=== PATIENT | male | born 2000 | race Caucasian/White ===

== ENCOUNTER 2019-07-19 15:50 | Outpatient (CLI) | payer BC, SELFPAY ==
--- NOTE | ~2019-07-19 | MR_ITS ---
EXAMINATION: MR knee LT wo con DATE: 07/19/2019 16:44 INDICATION: Acute onset left knee pain one week post injury TECHNIQUE: Magnetic resonance imaging (MRI) of the left knee was performed without intravenous contra st. Sequences included coronal PD-weighted FSE, coronal PD-weighted FS FSE, sagittal T2-weighted FSE , sagittal PD-weighted FS FSE and axial PD weighted fat saturated FSE. COMPARISON: None. FINDINGS: Medial compartment: Complex tear of the medial meniscus. This includes a vertical tear plane at the junction of the middl e and peripheral thirds of the meniscus beginning at the lateral side of the posterior horn. There ap pears be a second longitudinal horizontal tear plane extending peripherally from the vertical tear pl ane into the periphery of the posterior horn. At the junction of the body and posterior horn of the p ortion of the vertical tear plane extending to the cephalad articular surface terminates in the tear combines to extend anteriorly as an oblique tear extending to the articular surface at the peripheral third of the posterior meniscal body. There is increased signal at the peripheral portion of the pos terior root posterior to the vertical tear plane raising suspicion for a partial avulsion. Articular cartilage is normal. Lateral compartment: Lateral meniscus is normal. Articular cartilage is normal. Patellofemoral compartment: Articular cartilage is normal. Ligaments and tendons: Likely complete tear at the proximal side of the anterior cruciate ligament. The posterior cruciate l igament is normal. There is prominent fluid signal along the deep and superficial margins of the othe rwise normal-appearing medial collateral ligament consistent with low-grade sprain versus extension o f reactive edema related to the adjacent meniscal tear. There is thickening and mild increased signal involving the anterior portion of the proximal fibular collateral ligament with mild surrounding joshua ma consistent with moderate grade sprain. There is mild edema along the myotendinous junction of the popliteus muscle without discrete fluid signal intensity defect or tendon tear which could represent either reactive edema related to joint effusion or low-grade muscle strain. There is thickened disorg anized appearing tissue with increased signal situated between the popliteus tendon and the head of t he fibula suggesting at least partial tear of the expected ligament. There is however no fracture or marrow edema at the proximal tip of the fibula. Anterior and posterior ligaments of the head of the f ibula are normal. The extensor mechanism is normal. The visualized medial and lateral hamstring tendo ns as well as the iliotibial band are normal. Fluid: Large knee joint effusion No loose osteochondral bodies identified. Limits soft tissue edema about th e superolateral aspect of the popliteal fossa. Osseous/other: Prominent marrow edema surrounding a small subarticular curvilinear low signal intensity impaction fr acture at the lateral sulcus of the lateral femoral condyle. Marrow edema at the posterior rim of the lateral tibial plateau without definitive fracture line likely related to associated bone contusion resulting from anterior tibial subluxation injury. Similar pattern of marrow edema consistent with lilly ne contusion along the posterior rim of the medial tibial plateau and along the medial margin of the anterior weightbearing medial femoral condyle. No other fractures or pathologic marrow replacing proc ess. Small bone island at the medial femoral condyle. IMPRESSION: 1. Anterior tibial subluxation injury pattern with complete tear of the anterior cruciate ligament, s ubarticular impaction fracture at the lateral sulcus of the lateral femoral condyle and bone contusio ns at the medial femoral condyle and across the posterior margin of the medial and lateral tibial hali tea
== END 2019-07-19 15:51 | disposition home or self-care (01) ==
DX: S83.512A Sprain of anterior cruciate ligament of left knee, initial encounter (principal); S83.242A Other tear of medial meniscus, current injury, left knee, initial encounter; M25.462 Effusion, left knee; X58.XXXA Exposure to other specified factors, initial encounter
CPT/HCPCS: 73721

== ENCOUNTER 2023-10-28 11:05 | Emergency (ER) | payer BC, SELFPAY ==
--- NOTE | ~2023-10-28 | CT_ITS ---
CT of the Abdomen and Pelvis: Indication: Abdominal pain Technique: 2.5 mm axial scans were obtained through the abdomen and pelvis following intravenous adm inistration of 100 cc of Omnipaque 350. Dose reduction technique was used on this scan by utilizing a utomated exposure control and iterative reconstruction technique. The dose-length product (DLP) was 7 39.97 mGy-cm. Findings: Scans through the lung bases are unremarkable. The liver, spleen, pancreas, gallbladder, adrenals and kidneys are within normal limits. No evidence of aortic aneurysm. No lymphadenopathy. Possible mild wall thickening of the descending and sigmoid colon/rectum. No bowel obstruction. No ab scess or free air. Images through the pelvis were performed. Urinary bladder unremarkable. No pelvic mass seen. No ascit es. Bilateral L4 pars interarticularis defects are noted. Impression: Suspected extensive mild large bowel wall thickening, especially descending colon/sigmoid colon. Huey elate for infectious/inflammatory colitis. Reviewed, dictated and finalized at location . Impression: Suspected extensive mild large bowel wall thickening, especially descending col on/sigmoid colon. Correlate for infectious/inflammatory colitis.
[2023-10-28 11:08] VITALS: BP 137/79; PULSE 93; RESP 20; TEMP 36.6; O2SAT 100
[2023-10-28 11:35] LABS: Basophils Absolute Auto 0.1 K/mm3 (0.0-0.1); Basophils Percent Auto 0.5 % (0.2-1.2); Eosinophils Percent Auto 9.5 % (0-4.4); Hemoglobin 14.2 g/dL (14.0-18.0); Immature Granulocyte Absolute 0.05 K/mm3 (0.00-0.031); Immature Granulocyte Percent A 0.5 % (0-0.5); Lymphocytes Absolute Auto 1.65 K/mm3 (0.9-3.2); Lymphocytes Percent Auto 15.7 % (18.3-44.2); Mean Corpuscular HGB Conc 32.3 g/dl (32-36); Mean Platelet Volume 8.6 fl (7.4-10.4); Monocytes Absolute Auto 0.9 K/mm3 (0.1-0.6); Monocytes Percent Auto 8.6 % (2.6-8.5); Neutrophils Absolute Auto 6.8 K/mm3 (1.3-6.7); Neutrophils Percent Auto 65.2 % (45.5-73.1); Platelet Count Result 359 k/mm3 (150-375); Red Blood Count 4.89 M/mm3 (4.6-6.20); White Blood Count 10.5 K/mm3 (4.5-10.0)
[2023-10-28 11:37] LABS: Appearance Urine Clear (Clear); Bilirubin Urine Negative (Negative); Blood Urine Negative (Negative); Color Urine Yellow (Yellow); Glucose Urine UA Negative (Negative); Ketones Urine Negative (Negative); Leukocyte Esterase Ur Negative LEU/UL (Negative); Nitrate Urine Negative (Negative); Protein Urine Negative (Negative); Specific Grav Ur 1.025 (1.001-1.035); Urobilinogen Urine 0.2 mg/dL (<2.0); pH Urine 5.5 (5.0-9.0)
[2023-10-28 11:40] LABS: Add Urine Microscopic? NO
[2023-10-28 11:45] LABS: Alanine Aminotransferase 21 U/L (6-50); Albumin Level 4.6 g/dL (3.5-5.1); Alkaline Phosphatase 107 U/L (38-126); Anion Gap 6 mmol/L (4-12); Aspartate Amino Transferase 21 U/L (17-59); Bilirubin,Total 0.4 mg/dL (0.2-1.3); Blood Urea Nitrogen 15 mg/dL (9-20); Calcium 9.4 mg/dL (8.4-10.2); Carbon Dioxide 28 mmol/L (22-30); Chloride 106 mmol/L (98-107); Estimated CRCL calculation 108 ml/min; Estimated Glomerular Filt Rate > 60; Glucose 102 mg/dL (65-110); Lipase 1307 U/L (23-300); Potassium 4.1 mmol/L (3.4-5.0); Sodium 140 mmol/L (137-145)
--- NOTE | 2023-10-28 12:08 | ED.GIBLEED ---
HPI - GI Bleed General Chief complaint: GI Bleed Stated complaint: diarrhea w/ bloody stool Time Seen by Provider: 10/28/23 11:58 History of Present Illness HPI Narrative: Patient is a 22-year-old healthy male here with diarrhea and rectal bleeding. He states that the diarrhea has been present for about 1 month. He defecates 5 to 6 times a day, has occasional nocturnal stools. He states that he does have intermittent abdominal cramping that may prodrome episodes of diarrhea. Denies any fever chills. He does state over the last 6 months he has had some significant weight loss but this was around the time that he went through a bad break-up and had some decreased eating at that time due to loss of appetite. He is unsure if the diarrhea has caused any additional weight loss. He denies any recent travel. He notes that about 3 weeks ago he had an episode of bright red blood per rectum. This restarted approximately 4 days ago and he has it intermittently on about half of his bowel movements each day. He describes it as bright red on the paper and around his stool and occasionally in the toilet bowl. He denies any clots. He denies any lightheadedness, chest pain, shortness of breath. He has had a normal appetite and has been able to keep up with his p.o. intake and does not feel dehydrated. He has not had any new rashes or vision changes or joint pain. He has never had a colonoscopy in the past. No family history of IBD, IBS, colon cancer. No fevers, no night sweats. No nausea. Related Data Home Medications Medication Instructions Recorded Confirmed montelukast 10 mg tablet 10 mg PO DAILY 10/25/22 Allergies Allergy/AdvReac Type Severity Reaction Status Date / Time No Known Allergies Allergy Verified 10/28/23 11:11 Review of Systems Review of Systems: All systems reviewed & are unremarkable except as noted in HPI and below PMFSH Past Medical History Medical History (Updated 10/28/23 @ 13:55 by Manuela Melendrez MD) Acute bilateral otitis media Family History Family History (Updated 10/25/22 @ 13:08 by Radha Quispe MA) Father No problems noted. Mother No problems noted. Social History Social History (Updated 10/25/22 @ 13:07 by Radha Quispe MA) Smoking status: Current some day smoker Alcohol intake: current Drinks per week: 1 Alcohol use details: month Substance use: never Substance use type: does not use Lack of Transportation: No Lack of Food: Never True Current Housing: I Have Housing Concerned About Future Housing: No Difficulty Paying Gas/Electric Bills: No Difficulty Paying for Meds: No Currently Unemployed: No Education: High School Diploma/GED Difficulty w/ Childcare or Family Care: No Living arrangements: with family Occupation/Education: occupation Gender identity (if verbalized by the patient): Male Sexual Orientation (if Verbalized by the Patient): Straight or Heterosexual Spiritual care concerns: No Exam Narrative: GENERAL: Well-appearing, well-nourished, and in no acute distress. HEAD: Normocephalic, atraumatic. EYES: PERRLA and EOMI. ENT: Nares clear. Mucous membranes moist. NECK: Supple. CHEST: Clear to auscultation. No respiratory distress. HEART: Regular rate and rhythm. Normal peripheral pulses. ABDOMEN: Soft, suprapubic tenderness, no rebound or guarding, nondistended. EXTREMITIES: Normal range of motion. No edema. SKIN: Warm, dry, no rash. NEURO: No focal deficits. Alert and oriented x3. PSYCH: Normal mood and affect. Course Course Emergency Course: Chart review performed. Patient here with diarrhea x1 month with BRBPR increasing over the next 3 days. Intermittent abdominal pains. Triage vitals normal. Triage lab work reviewed. WBC 10.5, hgb stable at 14.2. CMP unremarkable. UA negative. Patient seen evaluated, nontoxic healthy 22-year-old male. Concern for IBD versus IBS versus some other malabsorption cause
[2023-10-28 12:37] LABS: CRP 1.3 mg/dL (<1.0)
[2023-10-28 13:50] VITALS: BP 120/73; PULSE 74; RESP 16; O2SAT 98
[2023-10-28 14:12] VITALS: BP 112/61; PULSE 74; RESP 16; O2SAT 99
== END 2023-10-28 14:13 | disposition home or self-care (01) ==
PROVIDERS: Emergency Medicine; Emergency Provider Student in an Organized Health Care Education/Training Program; PCP Family Medicine
DX: K52.9 Noninfective gastroenteritis and colitis, unspecified (principal); K62.5 Hemorrhage of anus and rectum; F17.200 Nicotine dependence, unspecified, uncomplicated
CPT/HCPCS: 36415; 74177; 80053; 81003; 83690; 85025; 86140; 99284; Q9967

== ENCOUNTER 2023-10-30 10:41 | Outpatient (CLI) | payer BC, SELFPAY ==
[2023-10-30 11:37] LABS: Lipase 847 U/L (23-300)
[2023-11-03 17:18] LABS: Immunoglobulin A 102 mg/dL (47-310); TTG IGA AB <1.0 U/mL
== END 2023-10-30 10:42 | disposition home or self-care (01) ==
LOC: ANHLAB 10:43
PROVIDERS: PCP Family Medicine; Visit Provider Nurse Practitioner Family
DX: R74.8 Abnormal levels of other serum enzymes (principal)
CPT/HCPCS: 36415; 82784; 83690; 86364; 87493

== ENCOUNTER 2023-10-30 11:56 | Outpatient (CLI) | payer BC, SELFPAY ==
[2023-10-30 13:18] LABS: Toxigenic C. Diff NEGATIVE (NEGATIVE)
== END 2023-10-30 11:57 | disposition home or self-care (01) ==
LOC: ANHLAB 11:57
PROVIDERS: PCP Family Medicine; Visit Provider Nurse Practitioner Family
DX: R74.8 Abnormal levels of other serum enzymes (principal)
CPT/HCPCS: 87493

== ENCOUNTER 2023-11-26 00:51 | Day surgery (SDC) | payer BC, SELFPAY ==
[2023-11-17 15:40] VITALS: BMI 28.1
[2023-11-26 13:48] VITALS: BP 109/71; PULSE 116; RESP 18; TEMP 36.5; O2SAT 99
[2023-11-26] MEDS: LACTATED RINGERS 1,000 ML 150 ML IV CONT (13:57)
--- NOTE | 2023-11-26 14:12 | P.PNAN_ITS ---
Anes - Initial Pre Proc Eval Procedure: Operation Date: 11/26/23 15:00 Proposed Procedures p Colonoscopy - Mehdi Wellington MD Date/Time: 11/26/23 14:12 Surgeon: Mehdi Wellington MD Pre Op Diagnosis: Abnormal finding on Imaging, Wt. Loss, Diarrhea Patient Data Age: 23 Gender: M Height: 1.8 m Weight: 81.9 kg Last Vital Signs Temp 36.5 C 11/26/23 13:48 Pulse 116 H 11/26/23 13:48 Resp 18 11/26/23 13:48 BP 109/71 11/26/23 13:48 Pulse Ox 99 11/26/23 13:48 O2 Del Method Room Air 11/26/23 13:48 Allergies Allergy/AdvReac Type Severity Reaction Status Date / Time No Known Allergies Allergy Verified 11/26/23 13:47 Home Medications Medication Instructions Recorded Confirmed Type No Home Medications 11/17/23 11/26/23 History Patient hx anesthesia problems: none Family hx anesthesia problems: none Results Review: All pre-operative results and documents have been reviewed as part of the pre- operative evaluation. [facility] Past Medical History Medical History Acute bilateral otitis media Family History Family History Father No problems noted. Mother No problems noted. Social History Social History Smoking status: Light tobacco smoker Tobacco type: cigars Additional smoking assessment comments: ONCE A MONTH Alcohol intake: current Drinks per week: 2 Alcohol use details: DRINKS Substance use: never Substance use type: does not use Lack of Transportation: No Lack of Food: Never True Current Housing: I Have Housing Concerned About Future Housing: No Difficulty Paying Gas/Electric Bills: No Difficulty Paying for Meds: No Currently Unemployed: No Education: High School Diploma/GED Difficulty w/ Childcare or Family Care: No Living arrangements: with family Occupation/Education: occupation Gender identity (if verbalized by the patient): Male Sexual Orientation (if Verbalized by the Patient): Straight or Heterosexual Spiritual care concerns: No Anes - Eval Final PreProcedure Day of Procedure 11/26/23 14:12 Patient weight: normal Heart: regular rate and rhythm Lungs: clear to auscultation Airway: Mallampati scale class II Neurological: alert and oriented Last oral intake: >/= 8 hours ASA classification: II Emergent: no Anesthetic plan: proceed Anesthesia type and monitoring: general GIVS and standard monitoring Results Review: All pre-operative results and documents have been reviewed as part of the pre- operative evaluation. Informed Consent: The patient's anesthetic plan and its attendant risks and benefits were discuss ed with the patient/family/POA. Questions were solicited and answers provided to the satisfaction of the patient/family/POA.
--- NOTE | 2023-11-26 14:44 | WPDHPUPDATE1 ---
History and Physical Update Update Date/Time: 11/26/23 14:44 History and Physical has been reviewed, including an updated exam of the patient. There are NO changes in the patient's condition. Risks, benefits, and alternatives have been discussed and questions answered. Patient agrees to proceed with procedure.
[2023-11-26 14:59] VITALS: BP 111/71; PULSE 91; RESP 24; O2SAT 98
[2023-11-26 15:09] VITALS: BP 109/66; PULSE 89; RESP 20; O2SAT 98
[2023-11-26 15:19] VITALS: BP 109/70; PULSE 88; RESP 18; O2SAT 98
== END 2023-11-26 15:30 | disposition home or self-care (01) ==
PROVIDERS: PCP Family Medicine; Visit Provider Internal Medicine Gastroenterology
PROC: 0DJD8ZZ Inspection of Lower Intestinal Tract, Via Natural or Artificial Opening Endoscopic (ICD-10-PCS; CPT 45378; principal; 2023-11-26 15:00)
DX: K52.9 Noninfective gastroenteritis and colitis, unspecified (principal); K62.5 Hemorrhage of anus and rectum; R93.89 Abnormal findings on diagnostic imaging of other specified body structures; Z72.0 Tobacco use
CPT/HCPCS: 45380; 88305; J2704; J7120

== ENCOUNTER 2023-12-10 15:02 | Emergency (ER) | payer OTHER, BC, SELFPAY ==
[2023-12-10 15:04] VITALS: BP 140/88; PULSE 79; RESP 16; TEMP 36.3; O2SAT 100
[2023-12-10] MEDS: TETANUS,DIPHTHERIA,AC PERTUSSIS ADULT (0.5 ML) BOOSTRIX IM (15:58)
[2023-12-10] MEDS: KETOROLAC 30 MG/ML VIAL (*BKC) IM (16:00)
[2023-12-10] MEDS: LIDOCAINE HCL 2% LOCAL INJ 20 ML VIAL 10 ML INFILTRATE (16:00)
--- NOTE | 2023-12-10 17:09 | ED.GENADULT ---
HPI - General Adult General Chief complaint: Wound/Laceration Stated complaint: lac Time Seen by Provider: 12/10/23 15:09 History of Present Illness HPI narrative: Ravinder Pham is a 23 y/o male who presents with reports of being at work and picked up a piece of equipment that hit him on his left upper lip. + upper left side laceration about 2CM Denies falling / no LOC Related Data Allergies Allergy/AdvReac Type Severity Reaction Status Date / Time No Known Allergies Allergy Verified 12/10/23 15:08 Review of Systems Review of Systems: All systems reviewed & are unremarkable except as noted in HPI and below PMFSH Past Medical History Medical History Acute bilateral otitis media Blood in stool Ulcerative colitis Family History Family History Father No problems noted. Mother No problems noted. Social History Social History Smoking status: Light tobacco smoker Tobacco type: cigars Additional smoking assessment comments: ONCE A MONTH Alcohol intake: current Drinks per week: 2 Alcohol use details: DRINKS Substance use: never Substance use type: does not use Lack of Transportation: No Lack of Food: Never True Current Housing: I Have Housing Concerned About Future Housing: No Difficulty Paying Gas/Electric Bills: No Difficulty Paying for Meds: No Currently Unemployed: No Education: High School Diploma/GED Difficulty w/ Childcare or Family Care: No Living arrangements: with family Occupation/Education: occupation Gender identity (if verbalized by the patient): Male Sexual Orientation (if Verbalized by the Patient): Straight or Heterosexual Spiritual care concerns: No Exam Narrative: GENERAL: Well-appearing, well-nourished, and in no acute distress. HEAD: Normocephalic, atraumatic. EYES: PERRLA and EOMI. ENT: Nares clear, no rhinorrhea or epistaxis. Mucous membranes moist. Oropharynx without tonsillar hypertrophy exudate or other lesions. 2 cm laceration to the the upper left side lip does not cross the vermilion border NECK: Supple. No adenopathy or masses. No carotid bruits or JVD CHEST: Clear to auscultation. No respiratory distress. No wheezes rales or rhonchi HEART: Regular rate and rhythm. No murmur heard. Normal peripheral pulses. ABDOMEN: Soft, nontender, nondistended, normal active bowel sounds. EXTREMITIES: Normal range of motion. No edema. SKIN: Warm, dry, no rash. NEURO: No focal deficits. Alert and oriented x3. PSYCH: Normal mood and affect. Course Vital Signs Vital signs: Vital Signs Temperature 36.3 C L 12/10/23 15:04 Pulse Rate 79 12/10/23 15:04 Respiratory Rate 16 12/10/23 15:04 Blood Pressure 140/88 12/10/23 15:04 Pulse Oximetry 100 12/10/23 15:04 Oxygen Delivery Room Air 12/10/23 15:04 Temperature 36.3 C L 12/10/23 15:04 Pulse Rate 79 12/10/23 15:04 Respiratory Rate 16 12/10/23 15:04 Blood Pressure 140/88 12/10/23 15:04 Pulse Oximetry 100 12/10/23 15:04 Oxygen Delivery Room Air 12/10/23 15:04 Procedures Laceration Laceration 1: Date: 12/10/23 Time: 17:20 Site: face Side (If applicable): left Size (cm): 2 Description: linear Depth: simple, single layer Local Anesthetic: lidocaine 2% Amount of anesthesia used (mL): 5 Pre-repair: wound explored, irrigated and irrigated extensively ====== Skin Level ====== Skin layer closed with: nylon Size (cm): 5-0 Number of sutures: 5 Technique: simple, interrupted ====== Subcutaneous Layer ====== ====== Muscle Layer ====== ====== Tendon Layer ====== Medical Decision Making MDM Narrative Medical decision making narrative: 2cm laceration to the upper left side of
== END 2023-12-10 17:14 | disposition home or self-care (01) ==
PROVIDERS: Emergency Provider Nurse Practitioner Family; PCP Family Medicine
DX: S01.511A Laceration without foreign body of lip, initial encounter (principal); F17.290 Nicotine dependence, other tobacco product, uncomplicated; Z23 Encounter for immunization; W22.8XXA Striking against or struck by other objects, initial encounter; Y99.0 Civilian activity done for income or pay
CPT/HCPCS: 12011; 90471; 90715; 96372; 99283; J1885

== ENCOUNTER 2024-03-24 16:46 | Outpatient (CLI) | payer OTHER, SELFPAY ==
[2024-03-24 16:08] LABS: Hematocrit 33.4 % (42.0-52.0); Hemoglobin 10.6 g/dL (14.0-18.0); Mean Corpuscular HGB Conc 31.7 g/dl (32-36); Mean Corpuscular Hemoglobin 26.3 pg (26-34); Mean Corpuscular Volume 82.9 fl (80-100); Mean Platelet Volume 8.2 fl (7.4-10.4); Platelet Count Result 524 k/mm3 (150-375); Red Blood Count 4.03 M/mm3 (4.6-6.20); Red Cell Distribution Width 14.2 % (11.5-14.5); White Blood Count 12.9 K/mm3 (4.5-10.0)
[2024-03-24 16:37] LABS: Alanine Aminotransferase 49 U/L (6-50); Albumin Level 4.1 g/dL (3.5-5.1); Alkaline Phosphatase 106 U/L (38-126); Anion Gap 8 mmol/L (4-12); Aspartate Amino Transferase 42 U/L (17-59); Bilirubin,Total 0.4 mg/dL (0.2-1.3); Blood Urea Nitrogen 14 mg/dL (9-20); Calcium 9.3 mg/dL (8.4-10.2); Carbon Dioxide 28 mmol/L (22-30); Chloride 102 mmol/L (98-107); Estimated Glomerular Filt Rate > 60; Glucose 91 mg/dL (65-110); Potassium 3.8 mmol/L (3.4-5.0); Sodium 138 mmol/L (137-145)
[2024-03-24 16:45] LABS: Erythrocyte Sedimentation Rate 49 mm/hr (0-20)
[2024-03-24 17:08] LABS: Hepatitis B Surface Antigen Negative (Negative)
[2024-03-24 17:27] LABS: Hepatitis B Surface Anti Res Positive
[2024-03-24 17:54] LABS: Toxigenic C. Diff NEGATIVE (NEGATIVE)
[2024-03-26 02:03] LABS: Hepatitis B Core Ab Total NON-REACTIVE (NON-REACTIVE)
[2024-03-27 12:49] LABS: NIL 0.05 IU/mL; Quantiferon TB Plus, 1T NEGATIVE (NEGATIVE); TB1-NIL 0.01 IU/mL
== END 2024-03-24 16:47 | disposition home or self-care (01) ==
PROVIDERS: PCP Family Medicine; Visit Provider Nurse Practitioner Family
DX: K51.90 Ulcerative colitis, unspecified, without complications (principal); R19.7 Diarrhea, unspecified
CPT/HCPCS: 36415; 80053; 83993; 85027; 85652; 86140; 86480; 86704; 86706; 87045; 87177; 87209; 87340; 87427; 87449; 87493

== ENCOUNTER 2024-08-18 14:01 | Outpatient (CLI) | payer OTHER, SELFPAY ==
[2024-08-18 14:34] LABS: Hematocrit 42.4 % (42.0-52.0); Hemoglobin 12.9 g/dL (14.0-18.0); Mean Corpuscular HGB Conc 30.4 g/dl (32-36); Mean Corpuscular Hemoglobin 25.1 pg (26-34); Mean Corpuscular Volume 82.5 fl (80-100); Mean Platelet Volume 8.6 fl (7.4-10.4); Platelet Count Result 428 k/mm3 (150-375); Red Blood Count 5.14 M/mm3 (4.6-6.20); Red Cell Distribution Width 15.6 % (11.5-14.5); White Blood Count 6.9 K/mm3 (4.5-10.0)
--- OUTSIDE RECORDS SUMMARY | 2024-08-18 15:38 | XMS_ITS | Clinical Summary ---
Author Organization [facility] Address [address] [place] [address] Care Team Providers Care Health Service Worker Name Role Phone Ciera Galvez MD Primary Care Provider [phone] Source Comments [facility],non-owned Affiliates and Associated Physician Practices is amultiple site organization consisting of ambulatory clinics and hospital sitesin [place], [place], [place] and [place]. This disclosure is being madepursuant to the Care Everywhere program and may not contain all information available regarding this patient. Last updated 18.[facility] Allergies No known active allergies Medications Be aware that medications may not be up to date on this document. Always verify current medications with the patient. No known medications Active Problems Problem Noted Date Diagnosed Date Acute pain of right shoulder 09/15/2015 [place]-Schlatter's disease 07/16/2013 Moderate persistent asthma 09/21/2010 Allergic rhinitis 09/17/2010 Allergic conjunctivitis 09/17/2010 Pain in joint of right shoulder Resolved Problems Problem Noted Date Diagnosed Date Resolved Date Asthma, intermittent 09/17/2010 011 Immunizations Name Administration Dates Next Due DTaP VACCINE IM (6wk-6yrs) 01/21/2005,,06/30/2000,03/17,01/15/2000 HEP A PEDS 2 DOSE 08/31/2010,01/25/2008 HEP B VACCINE, PED/ADOL 09/12/2001,12/20/2000, HIB BOOSTER 03/28/2001, 1,03/17/2000,01/14 INFLUENZA VACCINE, QUADR. (F LUZONE; FLULAVAL; FLUARIX; AFLURIA QUADRIVALENT; 6MO+), 0.5 ML (IIV4) 03/16/2019 MENINGOCOCCAL CONJUGATE (MCV4P) 11/04/2013 MMR 01/21/2005,03/28/2001 PNEUMOCOCCAL CONJ, PEDS 12/20/2000,06/30/2000, POLIO IPV 01/21/2005, 1,03/17/2000,01/14 TDAP (7yrs+) 08/31/2010 VARICELLA 01/25/2008,09/12/2001 Social History Tobacco Use Types Packs/Day Years Used Date Smoking Tobacco: Never Smokeless Tobacco: Never Alcohol Use Standard Drinks/Week Comments No 0 (1 standard drink = 0.6 oz pur e alcohol) Sex and Gender Information Value Date Recorded Sex Assigned at Not on file Gender Identity Not on file Sexual Orientation Not on file Last Filed Vital Signs Vital Sign Reading Time Taken Comments Blood Pressure 120/60 01/04/2017 11:18 AM CDT Pulse 92 01/04/2017 11:18 AM CDT Temperature 36.2 C (97.2 F) 04/06/2019 3:52 PM WATER TESTER Respiratory Rate 16 01/04/2017 11:18 AM CDT Oxygen Saturation 99% 01/04/2017 11:18 AM CDT Inhaled Oxygen Concentration - - Weight 89.8 kg (198 lb) 04/06/2019 3:52 PM WATER TESTER Height 177.8 cm (5' 10 ) 01/04/2017 11:18 AM CDT Body Mass Index - - Plan of Treatment Health Maintenance Due Date Last Done Comments PNEUMOCOCCAL VACCINE (1 of 1 - PPSV23) 11/15/2005 12/20/2000, 06/30/2000, 01/15/2000 HIV SCREENING 11/15/2014 HPV VACCINE (1 - Male 3-dose series) 11/15/2014 HEPATITIS C SCREENING 11/11/2017 DTAP/TDAP/TD VACCINES (7 - Td or Tdap) 08/31/2020 08/31/2010, 01/21/2005, 09/12/2001, Additional history exists COVID-19 VACCINE (1 - 2023- season) 2024 INFLUENZA VACCINE (#1) 2024 03/16/2019 DEPRESSION SCREENING 06/02/2024 ZOSTER VACCINE (1 of 2) 11/15/2049 HIB VACCINE Completed 03/28/2001, 06/03, 03/17/2000, Additional history exists HEPATITIS B VACCINE Completed 09/12/2001, 12/20/2000, 06/30/2000 MENINGOCOCCAL GROUPS A/C/Y/W VACCINE Aged Out 11/04/2013 No longer eligible based on patient's age to complete this topic MENINGOCOCCAL (Group B) VACCINE SHARED DECISION-MAKING Aged Out No longer eligible based on patient's age to complete this topic Goals Goal Patient Goal Type Associated Problems Recent Progress Patient-Stated? Author Use safety retraint in car Lifestyle On track( 019 1:59 PM CDT) Francie Ellis, YESIKA Care Teams Health Service Worker Relationship Specialty Start Date End Date Ciera Galvez MD PCP - General Pediatrics 08/07/16
--- OUTSIDE RECORDS SUMMARY | 2024-08-18 15:38 | XMS_ITS | Referral Summary ---
Author Organization [facility] (formerly [facility] Address [address] [place] [address] Care Team Providers Care Floor Nurse Name Role Phone Nir Schmid MD Primary Care Provider [phone] Allergies No known active allergies Medications fluticasone propionate 93 mcg/actuation aerosol breath activated Administer 1 spray into affected nostril(s) 2 (two) times a day 16 mL 6 1 Active Additional Information Patient taking differently:1 spray nasal 2 times daily,Indications: Nasal Polyp, Informant: Self, Reported on 05/15/2022 loratadine (CLARITIN) 10 mg tabletIndicatio ns:Allergic Rhinitis Take 1 tablet (10 mg total) by mouth home health aid before breakfast Active HYDROcodone-tammy taminophen (NORCO) 5-325 mg per tabletIndicatio ns:Pain TAKE 1 TABLET EVERY 4-6 HOURS NEEDED FOR PAIN 20 tablet 2 Active montelukast (SINGULAIR) 10 mg tablet 2 Active Active Problems Problem Noted Date Diagnosed Date Loose body in knee, left knee 05/14/2022 Overview (05/14/2022): Added automatically from request for surgery [id number] Left knee pain 05/14/2022 Overview (05/14/2022): Added automatically from request for surgery [id number] Hypertrophy, nasal, turbinate 02/16/2020 Overview (02/16/2020): Added automatically from request for surgery [id number] Chronic pansinusitis 02/16/2020 Overview (02/16/2020): Added automatically from request for surgery [id number] Nose polyp 02/16/2020 Overview (02/16/2020): Added automatically from request for surgery [id number] Hypertrophy of nasal turbinates 08/18/2019 Deviated nasal septum 08/18/2019 Chronic sinusitis 08/18/2019 Left anterior cruciate ligament tear 08/13/2019 Overview (08/13/2019): Added automatically from request for surgery [id number] Complex tear of medial menis cus of left knee as current injury 08/13/2019 Overview (08/13/2019): Added automatically from request for surgery [id number] Pain in joint of right shoulder 09/15/2015 [place]-Schlatter's disease 07/16/2013 Moderate persistent asthma 09/21/2010 Allergic conjunctivitis 09/17/2010 Allergic rhinitis 09/17/2010 Immunizations Immunization Administration Dates Next Due DTaP 01/21/2005, 2,06/30/2000,03/17,01/15/2000 Hep A, Pediatric 08/31/2010,01/25/2008 Hep B, Adolescent or Pediatric 09/12/2001,2000,06/30/2000 Hib (PRP-D) 03/28/2001, 1,03/17/2000,01/14 IPV 01/21/2005, 1,03/17/2000,01/14 Influenza, Quadrivalent, Spl it, Preservative Free, Intramuscular 03/16/2019 MMR 01/21/2005,03/28/2001 Meningococcal MCV4P (Menactra) 11/04/2013 Tdap 08/31/2010 Varicella 01/25/2008,09/12/2001 Social History Tobacco Use Types Packs/Day Years Used Date Smoking Tobacco: Some Days Cigars Passive Smoke Exposure: Yes Smokeless Tobacco: Never Tobacco Cessation:Ready to Q uit: Not Asked; Counseling Given: Not Answered Comments:Occasional cigar Alcohol Use Standard Drinks/Week Comments Never 0 (1 standard drink = 0.6 oz pur e alcohol) AUDIT-C Answer Date Recorded Q1: How often do you have a drink containing alc ohol? 2-4 times a month 05/30/2022 Q2: How many drinks containi ng alcohol do you have on a typical day when you are drinking? 1 or 2 05/30/2022 Q3: How often do you have si x or more drinks on one occasion? Never 05/30/2022 PHQ-2 Answer Date Recorded PHQ-2 Score 0 04/20/2019 Sex and Gender Information Value Date Recorded Sex Assigned at Not on file Legal Sex Male 7:08 PM WASH BOX OPERATOR Gender Identity Not on file Sexual Orientation Not on file Last Filed Vital Signs Vital Sign Reading Time Taken Comments Blood Pressure 146/83 05/30/2022 1:45 PM WASH BOX OPERATOR Pulse 86 05/30/2022 1:45 PM WASH BOX OPERATOR Temperature 36 C (96.8 F) 05/30/2022 12:34 PM WASH BOX OPERATOR Respiratory Rate 17 05/30/2022 1:45 PM WASH BOX OPERATOR Oxygen Saturation 97% 05/30/2022 1:45 PM WASH BOX OPERATOR Inhaled Oxygen Concentration - - Weight 97.5 kg (215 lb) 07/16/2023 7:36 AM WASH BOX OPERATOR Height 180.3 cm (5' 11 ) 07/16/2023 7:36 AM WASH BOX OPERATOR Body Mass Index 29.99 07/16/2023 7:36 AM WASH BOX OPERATOR Plan of Treatment Not on file Medical Devices Implanted Type Area Underwriting Manager Device Identifier Shelf Expiration Date Model / Serial / Lot Quispe & Nephew Endoscopy [id number] Fast-Fix 2 [place] Pretie Suture 360d Curve Device Fixation - S00 - [id number] Implanted:Qty: 1 on 10/19/2019 by Adal Browning MD at [facility] Left: Knee Quispe [employer] Nephew Endoscopy 05/20/2022 [id number] / [id number] Quispe [employer] Nephew Endoscopy [id number] Fast-Fix 2 [place] Pretie Suture 360d Curve Device Fixation - S00 - [id number] Implanted:Qty: 1 on 10/19/2019 by Adal Browning MD at [facility] Left: Knee Quispe [employer] Nephew Endoscopy 06/09/2022 [id number] / [id number] Quispe [employer] Nephew Endoscopy [id number] Fast-Fix 2 [place] Pretie Suture 360d Curve Device Fixation - S00 - [id number] Implanted:Qty: 1 on 10/19/2019 by Adal Browning MD at [facility] Left: Knee Quispe [employer] Nephew Endoscopy 06/09/2022 [id number] / [id number] Ar[employer]rex Inc Ar-1380e 8mm 20mm Cannulated Sheath Acl Pcl Screw Interference Titanium - [id number] Implanted:Qty: 1 on 10/19/2019 by Adal Browning MD at [facility] Left: Knee Ar[employer] Inc 07/02/2024 AR-1380E / / [id number] Arthrex Inc Ar-1390e 9mm 20mm Cannulated Sheath Acl Pcl Screw Interference Titanium - [id number] Implanted:Qty: 1 on 10/19/2019 by Adal Browning MD at [facility] Left: Knee [employer] 05/01/2024 AR-1390E / / [id number] Insurance [facility] ACCESS [employer] OOS youcalc ACCESS OOS youcalc ACCESS OOS Care Teams Floor Nurse Relationship Specialty Start Date End Date Nir Schmid MD [address] [place] [address] PCP - General Family Medicine 04/15/22
--- OUTSIDE RECORDS SUMMARY | 2024-08-18 15:38 | XMS_ITS | Clinical Summary ---
Author Organization [facility] Address [address] [place] [address] Care Team Providers Care Product Tester Fiberglass Name Role Phone Nir Schmid MD Primary Care Provider Allergies No known active allergies Medications fluticasone propionate 93 mcg/actuation aerosol breath activated Administer 1 spray into affected nostril(s) 2 (two) times a day 16 mL 6 1 Active Additional Information Patient taking differently:1 spray nasal 2 times daily,Indications: Nasal Polyp, Informant: Self, Reported on 05/15/2022 loratadine (CLARITIN) 10 mg tabletIndicatio ns:Allergic Rhinitis Take 1 tablet (10 mg total) by mouth truck spotter before breakfast Active HYDROcodone-tammy taminophen (NORCO) 5-325 mg per tabletIndicatio ns:Pain TAKE 1 TABLET EVERY 4-6 HOURS NEEDED FOR PAIN 20 tablet 2 Active montelukast (SINGULAIR) 10 mg tablet 2 Active Active Problems Problem Noted Date Diagnosed Date Loose body in knee, left knee 05/14/2022 Overview (05/14/2022): Added automatically from request for surgery [id number] Left knee pain 05/14/2022 Overview (05/14/2022): Added automatically from request for surgery [id number] Hypertrophy, nasal, turbinate 02/16/2020 Overview (02/16/2020): Added automatically from request for surgery [id number] Chronic pansinusitis 02/16/2020 Overview (02/16/2020): Added automatically from request for surgery [id number] Nose polyp 02/16/2020 Overview (02/16/2020): Added automatically from request for surgery [id number] Hypertrophy of nasal turbinates 08/18/2019 Deviated nasal septum 08/18/2019 Chronic sinusitis 08/18/2019 Left anterior cruciate ligament tear 08/13/2019 Overview (08/13/2019): Added automatically from request for surgery [id number] Complex tear of medial menis cus of left knee as current injury 08/13/2019 Overview (08/13/2019): Added automatically from request for surgery [id number] Pain in joint of right shoulder 09/15/2015 [place]-Schlatter's disease 07/16/2013 Moderate persistent asthma 09/21/2010 Allergic conjunctivitis 09/17/2010 Allergic rhinitis 09/17/2010 Immunizations Immunization Administration Dates Next Due DTaP 01/21/2005, 2,06/30/2000,03/17,01/15/2000 Hep A, Pediatric 08/31/2010,01/25/2008 Hep B, Adolescent or Pediatric 09/12/2001,2000,06/30/2000 Hib (PRP-D) 03/28/2001, 1,03/17/2000,01/14 IPV 01/21/2005, 1,03/17/2000,01/14 Influenza, Quadrivalent, Spl it, Preservative Free, Intramuscular 03/16/2019 MMR 01/21/2005,03/28/2001 Meningococcal MCV4P (Menactra) 11/04/2013 Tdap 08/31/2010 Varicella 01/25/2008,09/12/2001 Surgical History Surgery Date Site/Laterality Comments HAND SURGERY 12/01/2015 - 12/31/2015 pinky finger SEPTOPLASTY 06/02/2019 - 06/01/2020 ANTERIOR CRUCIATE LIGAMENT REPAIR 06/02/2019 - 06/01/2020 Left ANTERIOR CRUCIATE LIGAMENT WITH PATELLAR TENDON; ARTHROSCOPIC MEDIAL MENISCAL REPAIR Medical History Medical History Date Comments No pertinent past medical history Asthma childhood Allergic rhinitis Concussion X3, last 2017, n o residual Family History Medical History Relation Name Comments No Known Problems Brother Arthritis Father Kevin Hypertension Father Kevin Alzheimer's disease Maternal Grandfather Raffi No Known Problems Maternal Grandmother No Known Problems Mother No Known Problems Paternal Grandfather No Known Problems Paternal Grandmother No Known Problems Sister Anesthesia problems Neg Hx Relation Name Status Comments Brother Alive Father Kevin Alive Maternal Grandfather Raffi Maternal Grandmother Alive Mother Alive Paternal Grandfather Alive Paternal Grandmother Alive Sister Alive Social History Tobacco Use Types Packs/Day Years [...] on file Legal Sex Male 7:08 PM PARTS ORDER AND STOCK CLERK Gender Identity Not on file Sexual Orientation Not on file Obstetrics History Last Filed Vital Signs Vital Sign Reading Time Taken Comments Blood Pressure 146/83 05/30/2022 1:45 PM PARTS ORDER AND STOCK CLERK Pulse 86 05/30/2022 1:45 PM PARTS ORDER AND STOCK CLERK Temperature 36 C (96.8 F) 05/30/2022 12:34 PM PARTS ORDER AND STOCK CLERK Respiratory Rate 17 05/30/2022 1:45 PM PARTS ORDER AND STOCK CLERK Oxygen Saturation 97% 05/30/2022 1:45 PM PARTS ORDER AND STOCK CLERK Inhaled Oxygen Concentration - - Weight 97.5 kg (215 lb) 07/16/2023 7:36 AM PARTS ORDER AND STOCK CLERK Height 180.3 cm (5' 11 ) 07/16/2023 7:36 AM PARTS ORDER AND STOCK CLERK Body Mass Index 29.99 07/16/2023 7:36 AM PARTS ORDER AND STOCK CLERK Plan of Treatment Health Maintenance Due Date Last Done Comments Hepatitis C Screening 1999 HPV Vaccines (1 - Male 3-dos e series) 11/15/2014 Regular Well Visit/Exam 18-64 11/15/2017 Pneumococcal vaccine <65 (1 of 2 - PCV) 11/15/2018 Depression Screening 04/20/2020 04/20/2019 DTaP/Tdap/Td Vaccine (7 - Td or Tdap) 08/31/2020 08/31/2010, 01/21/2005, 09/12/2001, Additional history exists Influenza Vaccine (#1) 2024 03/16/2019 Hepatitis B Screening Completed 09/12/2001 , 12/20/2000, 06/30/2000 Varicella Vaccines Completed 01/25/2008, 09/12/2001 Medical Devices Implanted Type Area Drying Machine Back Tender Device Identifier Shelf Expiration Date Model / Serial / Lot Quispe & Nephew Endoscopy [id number] Fast-Fix 2 [place] Pretie Suture 360d Curve Device Fixation - S00 - [id number] Implanted:Qty: 1 on 10/19/2019 by Adal Browning MD at [facility] [place] Left: Knee Quis[employer] Nephew Endoscopy 05/20/2022 [id number] / [id number] Quispe [employer] Nephew Endoscopy [id number] Fast-Fix 2 [place] Pretie Suture 360d Curve Device Fixation - S00 - [id number] Implanted:Qty: 1 on 10/19/2019 by Adal Browning MD at [facility] Left: Knee Quispe [employer] Nephew Endoscopy 06/09/2022 [id number] / [id number] Quispe [employer] Nephew Endoscopy [id number] Fast-Fix 2 [place] Pretie Suture 360d Curve Device Fixation - S00 - [id number] Implanted:Qty: 1 on 10/19/2019 by Adal Browning MD at [facility] Left: Knee Quispe [employer] Nephew Endoscopy 06/09/2022 [id number] / [id number] Ar[employer]rex Inc Ar-1380e 8mm 20mm Cannulated Sheath Acl Pcl Screw Interference Titanium - [id number] Implanted:Qty: 1 on 10/19/2019 by Adal Browning MD at [facility] [place] Left: Knee [employer] Inc 07/02/2024 AR-1380E / / [id number] Ar[employer]rex Inc Ar-1390e 9mm 20mm Cannulated Sheath Acl Pcl Screw Interference Titanium - [id number] Implanted:Qty: 1 on 10/19/2019 by Adal Browning MD at [facility] Left: Knee [employer] 05/01/2024 AR-1390E / / [id number] Insurance [employer] OOS [employer] OOS [employer] ACCESS OOS Care Teams Product Tester Fiberglass Relationship Specialty Start Date End Date Nir Schmid MD [address] [place] [address] [place] [address] PCP - General Family Medicine 04/15/22
[2024-08-18 15:54] LABS: Alanine Aminotransferase 22 U/L (6-50); Albumin Level 4.6 g/dL (3.5-5.1); Alkaline Phosphatase 111 U/L (38-126); Anion Gap 10 mmol/L (4-12); Aspartate Amino Transferase 27 U/L (17-59); Bilirubin,Total 0.3 mg/dL (0.2-1.3); Blood Urea Nitrogen 19 mg/dL (9-20); CRP 1.7 mg/dL (<1.0); Calcium 9.2 mg/dL (8.4-10.2); Carbon Dioxide 27 mmol/L (22-30); Chloride 102 mmol/L (98-107); Estimated Glomerular Filt Rate > 60; Glucose 108 mg/dL (65-110); Potassium 3.7 mmol/L (3.4-5.0); Sodium 139 mmol/L (137-145)
== END 2024-08-18 14:02 | disposition home or self-care (01) ==
LOC: ANHLAB 14:02
PROVIDERS: Visit Provider Nurse Practitioner Family
DX: K51.80 Other ulcerative colitis without complications (principal); R19.5 Other fecal abnormalities; R19.7 Diarrhea, unspecified; R10.9 Unspecified abdominal pain
CPT/HCPCS: 36415; 80053; 85027; 86140

== ENCOUNTER 2024-08-19 10:57 | Outpatient (CLI) | payer OTHER, SELFPAY ==
--- OUTSIDE RECORDS SUMMARY | 2024-08-19 11:52 | XMS_ITS | Clinical Summary ---
Author Organization [facility] Address [address] [facility] [place] [address] Care Team Providers Care Ambulance Driver Name Role Phone Ciera Galvez MD Primary Care Provider [phone] Source Comments [facility],non-owned Affiliates and Associated Physician Practices is amultiple site organization consisting of ambulatory clinics and hospital sitesin [place], [place], [place] and [place]. This disclosure is being madepursuant to the Care Everywhere program and may not contain all information available regarding this patient. Last updated 18.[facility] Allergies No known active allergies Medications Be aware that medications may not be up to date on this document. Always verify current medications with the patient. No known medications Active Problems Problem Noted Date Diagnosed Date Acute pain of right shoulder 09/15/2015 [place]-Schlatter's disease 07/16/2013 Moderate persistent asthma 09/21/2010 Allergic [...] 36.2 C (97.2 F) 04/06/2019 3:52 PM FOLDER INSPECTOR Respiratory Rate 16 01/04/2017 11:18 AM CDT Oxygen Saturation 99% 01/04/2017 11:18 AM CDT Inhaled Oxygen Concentration - - Weight 89.8 kg (198 lb) 04/06/2019 3:52 PM FOLDER INSPECTOR Height 177.8 cm (5' 10 ) 01/04/2017 [...] PM CDT) Francie Ellis, YESIKA Care Teams Ambulance Driver Relationship Specialty Start Date End Date Ciera Galvez MD PCP - General Pediatrics 08/07/16
--- OUTSIDE RECORDS SUMMARY | 2024-08-19 11:52 | XMS_ITS | Clinical Summary ---
Author Organization [facility] Address [address] [place] [address] Care Team Providers Care Surgical Scrub Technician Name Role Phone Nir Schmid MD Primary Care Provider [phone] Allergies No known active allergies Medications fluticasone propionate 93 mcg/actuation aerosol breath activated Administer 1 spray into affected nostril(s) 2 (two) times a day 16 mL 6 1 Active Additional Information Patient taking differently:1 spray nasal 2 times daily,Indications: Nasal Polyp, Informant: Self, Reported on 05/15/2022 loratadine (CLARITIN) 10 mg tabletIndicatio ns:Allergic Rhinitis Take 1 tablet (10 mg total) by mouth osd clerk before breakfast Active HYDROcodone-tammy taminophen (NORCO) 5-325 mg per tabletIndicatio ns:Pain TAKE 1 TABLET EVERY 4-6 HOURS NEEDED FOR PAIN 20 tablet 2 Active montelukast (SINGULAIR) 10 mg tablet 2 Active Active Problems Problem Noted Date Diagnosed Date Loose body in knee, left knee 05/14/2022 Overview (05/14/2022): Added automatically from request for surgery [id number] Left knee pain 05/14/2022 Overview (05/14/2022): Added automatically from request for surgery [id number] Hypertrophy, nasal, turbinate 02/16/2020 Overview (02/16/2020): Added automatically from request for surgery [id number] Chronic pansinusitis 02/16/2020 Overview (02/16/2020): Added automatically from request for surgery [id number] Nose polyp 02/16/2020 Overview (02/16/2020): Added automatically from request for surgery [id number] Hypertrophy of nasal turbinates 08/18/2019 Deviated nasal septum 08/18/2019 Chronic sinusitis 08/18/2019 Left anterior cruciate ligament tear 08/13/2019 Overview (08/13/2019): Added automatically from request for surgery [id number] Complex tear of medial menis cus of left knee as current injury 08/13/2019 Overview (08/13/2019): Added automatically from request for surgery [id number] Pain in joint of right shoulder 09/15/2015 [place]-Schlatter's disease 07/16/2013 Moderate persistent asthma 09/21/2010 Allergic [...] on file Legal Sex Male 7:08 PM ASSISTANT PRINTER FLOOR COVERING Gender Identity Not on file Sexual Orientation Not on file Obstetrics History Last Filed Vital Signs Vital Sign Reading Time Taken Comments Blood Pressure 146/83 05/30/2022 1:45 PM ASSISTANT PRINTER FLOOR COVERING Pulse 86 05/30/2022 1:45 PM ASSISTANT PRINTER FLOOR COVERING Temperature 36 C (96.8 F) 05/30/2022 12:34 PM ASSISTANT PRINTER FLOOR COVERING Respiratory Rate 17 05/30/2022 1:45 PM ASSISTANT PRINTER FLOOR COVERING Oxygen Saturation 97% 05/30/2022 1:45 PM ASSISTANT PRINTER FLOOR COVERING Inhaled Oxygen Concentration - - Weight 97.5 kg (215 lb) 07/16/2023 7:36 AM ASSISTANT PRINTER FLOOR COVERING Height 180.3 cm (5' 11 ) 07/16/2023 7:36 AM ASSISTANT PRINTER FLOOR COVERING Body Mass Index 29.99 07/16/2023 7:36 AM ASSISTANT PRINTER FLOOR COVERING Plan of Treatment Health Maintenance Due Date [...] 01/25/2008, 09/12/2001 Medical Devices Implanted Type Area Mobile Ui/Ux Designer Device Identifier Shelf Expiration Date Model / Serial / Lot Quispe & Nephew Endoscopy [id number] Fast-Fix 2 [place] Pretie Suture 360d Curve Device Fixation - S00 - [id number] Implanted:Qty: 1 on 10/19/2019 by Adal Browning MD at [facility] [place] Left: Knee Quispe [employer] Nephew Endoscopy 05/20/2022 [id number] / [id number] Quispe [employer] Nephew Endoscopy [id number] Fast-Fix 2 [place] Pretie Suture 360d Curve Device Fixation - S00 - [id number] Implanted:Qty: 1 on 10/19/2019 by Adal Browning MD at [facility] Left: Knee Quispe [employer] Nephew Endoscopy 06/09/2022 [id number] / [id number] Quispe [employer] Nephew Endoscopy [id number] Fast-Fix 2 [place] Pretie Suture 360d Curve Device Fixation - S00 - [id number] Implanted:Qty: 1 on 10/19/2019 by Adal Browning MD at [facility] Left: Knee Quispe [employer] Nephew Endoscopy 06/09/2022 [id number] / [id number] Ar[employer]rex Inc Ar-1380e 8mm 20mm Cannulated Sheath Acl Pcl Screw Interference Titanium - [id number] Implanted:Qty: 1 on 10/19/2019 by Adal Browning MD at [facility] [place] Left: Knee [employer] Inc 07/02/2024 AR-1380E / / [id number] Arthrex Inc Ar-1390e 9mm 20mm Cannulated Sheath Acl Pcl Screw Interference Titanium - [id number] Implanted:Qty: 1 on 10/19/2019 by Adal Browning MD at [facility] Left: Knee [employer] 05/01/2024 AR-1390E / / [id number] Insurance [employer] Unique Microguides OOS Unique Microguides OOS Connectivity ACCESS OOS Care Teams Surgical Scrub Technician Relationship Specialty Start Date End Date Nir Schmid MD [address] [place] [address] [place] [address] PCP - General Family Medicine 04/15/22
--- OUTSIDE RECORDS SUMMARY | 2024-08-19 11:52 | XMS_ITS | Referral Summary ---
Author Organization [facility] Address [address] [place] [address] Care Team Providers Care Men'S Swim Coach Name Role Phone Nir Schmid MD Primary Care Provider [phone] Allergies No known active allergies Medications fluticasone propionate 93 mcg/actuation aerosol breath activated Administer 1 spray into affected nostril(s) 2 (two) times a day 16 mL 6 1 Active Additional Information Patient taking differently:1 spray nasal 2 times daily,Indications: Nasal Polyp, Informant: Self, Reported on 05/15/2022 loratadine (CLARITIN) 10 mg tabletIndicatio ns:Allergic Rhinitis Take 1 tablet (10 mg total) by mouth flash designer before breakfast Active HYDROcodone-tammy taminophen (NORCO) 5-325 mg per tabletIndicatio ns:Pain TAKE 1 TABLET EVERY 4-6 HOURS NEEDED FOR PAIN 20 tablet 2 Active montelukast (SINGULAIR) 10 mg tablet 2 Active Active Problems Problem Noted Date Diagnosed Date Loose body in knee, left knee 05/14/2022 Overview (05/14/2022): Added automatically from request for surgery [id number] Left knee pain 05/14/2022 Overview (05/14/2022): Added automatically from request for surgery [id number] Hypertrophy, nasal, turbinate 02/16/2020 Overview (02/16/2020): Added automatically from request for surgery [id number] Chronic pansinusitis 02/16/2020 Overview (02/16/2020): Added automatically from request for surgery [id number] Nose polyp 02/16/2020 Overview (02/16/2020): Added automatically from request for surgery [id number] Hypertrophy of nasal turbinates 08/18/2019 Deviated nasal septum 08/18/2019 Chronic sinusitis 08/18/2019 Left anterior cruciate ligament tear 08/13/2019 Overview (08/13/2019): Added automatically from request for surgery [id number] Complex tear of medial menis cus of left knee as current injury 08/13/2019 Overview (08/13/2019): Added automatically from request for surgery [id number] Pain in joint of right shoulder 09/15/2015 [place]-Schlatter's disease 07/16/2013 Moderate persistent asthma 09/21/2010 Allergic [...] on file Legal Sex Male 7:08 PM GOLF COURSE EQUIPMENT OPERATOR Gender Identity Not on file Sexual Orientation Not on file Last Filed Vital Signs Vital Sign Reading Time Taken Comments Blood Pressure 146/83 05/30/2022 1:45 PM GOLF COURSE EQUIPMENT OPERATOR Pulse 86 05/30/2022 1:45 PM GOLF COURSE EQUIPMENT OPERATOR Temperature 36 C (96.8 F) 05/30/2022 12:34 PM GOLF COURSE EQUIPMENT OPERATOR Respiratory Rate 17 05/30/2022 1:45 PM GOLF COURSE EQUIPMENT OPERATOR Oxygen Saturation 97% 05/30/2022 1:45 PM GOLF COURSE EQUIPMENT OPERATOR Inhaled Oxygen Concentration - - Weight 97.5 kg (215 lb) 07/16/2023 7:36 AM GOLF COURSE EQUIPMENT OPERATOR Height 180.3 cm (5' 11 ) 07/16/2023 7:36 AM GOLF COURSE EQUIPMENT OPERATOR Body Mass Index 29.99 07/16/2023 7:36 AM GOLF COURSE EQUIPMENT OPERATOR Plan of Treatment Not on file Medical Devices Implanted Type Area Mortgage Originator Device Identifier Shelf Expiration Date Model / Serial / Lot Quispe & Nephew Endoscopy [id number] Fast-Fix 2 [place] Pretie Suture 360d Curve Device Fixation - S00 - [id number] Implanted:Qty: 1 on 10/19/2019 by Adal Browning MD at [facility] Left: Knee Quispe [employer] Nephew Endoscopy 05/20/2022 [id number] / [id number] Quispe [employer] Nephew Endoscopy [id number] Fast-Fix 2 [place] Pretie Suture 360d Curve Device Fixation - S00 - [id number] Implanted:Qty: 1 on 10/19/2019 by Adal Browning MD at [facility] Left: Knee Quis[employer] Nephew Endoscopy 06/09/2022 [id number] / [id number] Quispe [employer] Nephew Endoscopy [id number] Fast-Fix 2 [place] Pretie Suture 360d Curve Device Fixation - S00 - [id number] Implanted:Qty: 1 on 10/19/2019 by Adal Browning MD at [facility] Left: Knee Quis[employer] Nephew Endoscopy 06/09/2022 [id number] / [id number] Ar[employer] Inc Ar-1380e 8mm 20mm Cannulated Sheath Acl Pcl Screw Interference Titanium - [id number] Implanted:Qty: 1 on 10/19/2019 by Adal Browning MD at [facility] Left: Knee [employer] 07/02/2024 AR-1380E / / [id number] Ar[employer]rex Inc Ar-1390e 9mm 20mm Cannulated Sheath Acl Pcl Screw Interference Titanium - [id number] Implanted:Qty: 1 on 10/19/2019 by Adal Browning MD at [facility] Left: Knee [employer] 05/01/2024 AR-1390E / / [id number] Insurance [facility] ACCESS [employer] OOS [employer] ACCESS OOS [employer] ACCESS OOS Care Teams Men'S Swim Coach Relationship Specialty Start Date End Date Nir Schmid MD [address] [place] [address] PCP - General Family Medicine 04/15/22
[2024-08-19 11:59] LABS: Erythrocyte Sedimentation Rate 9 mm/hr (0-20)
[2024-08-19 12:47] LABS: Toxigenic C. Diff NEGATIVE (NEGATIVE)
== END 2024-08-19 10:58 | disposition home or self-care (01) ==
LOC: ANHLAB 10:58
PROVIDERS: Visit Provider Nurse Practitioner Family
DX: K51.80 Other ulcerative colitis without complications (principal); K92.1 Melena; R19.7 Diarrhea, unspecified; R10.9 Unspecified abdominal pain
CPT/HCPCS: 36415; 83993; 85652; 87045; 87177; 87209; 87269; 87427; 87449; 87493

== ENCOUNTER 2025-02-18 05:11 | Day surgery (SDC) | payer OTHER, SELFPAY ==
[2025-02-03 13:31] VITALS: BMI 27.6
--- OUTSIDE RECORDS SUMMARY | 2025-02-18 05:15 | XMS_ITS | Clinical Summary ---
Author Organization [facility] Address [address] [place] [address] Care Team Providers Care Radiocommunications Technician Name Role Phone Ciera Galvez MD Primary Care Provider [phone] Source Comments [facility],non-owned Affiliates and Associated Physician Practices is amultiple site organization consisting of ambulatory clinics and hospital sitesin [place], [place], [place] and [place]. This disclosure is being madepursuant to the Care Everywhere program and may not contain all information available regarding this patient. Last updated 18.[facility] Allergies No known active allergies Medications * Be aware that medications may not be up to date on this document. Alwaysverify current medications with the patient. No known medications Active Problems Problem Noted Date Diagnosed Date Acute pain of right shoulder 09/15/2015 Petra-Schlatter's disease 07/16/2013 Moderate persistent asthma 09/21/2010 Allergic rhinitis 09/17/2010 Allergic conjunctivitis 09/17/2010 Pain in joint of right shoulder Resolved Problems Problem Noted Date Diagnosed Date Resolved Date Asthma, intermittent 09/17/2010 011 Immunizations Immunization Administration Dates Next Due DTaP VACCINE IM (6wk-6yrs) 01/21/2005,,06/30/2000,03/17,01/15/2000 HEP A PEDS 2 DOSE 08/31/2010,01/25/2008 HEP B VACCINE, PED/ADOL 09/12/2001,12/20/2000, HIB BOOSTER 03/28/2001, 1,03/17/2000,01/14 INFLUENZA VACCINE, QUADR. 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 Gender Identity Not on file Sexual Orientation Not on file Last Filed Vital Signs Vital Sign Reading Time Taken Comments Blood Pressure 120/60 01/04/2017 11:18 AM CDT Pulse 92 01/04/2017 11:18 AM CDT Temperature 36.2 C (97.2 F) 04/06/2019 3:52 PM BRAN MIXER Respiratory Rate 16 01/04/2017 11:18 AM CDT Oxygen Saturation 99% 01/04/2017 11:18 AM CDT Inhaled Oxygen Concentration - - Weight 89.8 kg (198 lb) 04/06/2019 3:52 PM BRAN MIXER Height 177.8 cm (5' 10) 01/04/2017 11:18 AM CDT Body Mass Index - - Plan of Treatment Health Maintenance Due Date Last Done Comments PNEUMOCOCCAL VACCINE (1 of 1 - PPSV23, PCV20, or PCV21) 11/15/2005 12/20/2000, 06/30/2000, 01/15/2000 HIV SCREENING 11/15/2014 HPV VACCINE (1 - Male 3-dose series) 11/15/2014 HEPATITIS C SCREENING 11/11/2017 DTAP/TDAP/TD VACCINES (7 - Td or Tdap) 08/31/2020 08/31/2010, 01/21/2005, 09/12/2001, Additional history exists DEPRESSION SCREENING 06/02/2024 COVID-19 VACCINE ( season) 2025 INFLUENZA VACCINE (#1) 2025 03/16/2019 ZOSTER VACCINE (1 of 2) 11/15/2049 HIB [...] track( 019 1:59 PM CDT) Francie Ellis, RN Insurance [facility] * Guarantor: RAVINDER PHAM Account Type Relation to Patient Date of Phone Billing Address Personal/Family [address] [place] [address] [facility] SELF PAY NO INSURANCE Member Subscriber Plan / Payer (Ef fective for All Dates) Name:Ravinder Pham Member ID:Not on file Relation to Subscriber:Not on file Name:RAVINDER PHAM Subscriber ID:Not on file Address: [address] [place] [phone] Payer ID:Not on file Group ID:Not on file Type:Self Pay Address: [place], [place] * Guarantor: RAVINDER PHAM Account Type Relation to Patient Date of Phone Billing Address Personal/Family [address] [place] [phone] [employer] [place] SELF PAY NO INSURANCE Member Subscriber Plan / Payer (Ef fective for All Dates) Name:Ravinder Pham Member ID:Not on file Relation to Subscriber:Not on file Name:RAVINDER PHAM Subscriber ID:Not on file Address: [address] [place] [phone] Payer ID:Not on file Group ID:Not on file Type:Self Pay Address: [place], [place] * Guarantor: RAVINDER PHAM Account Type Relation to Patient Date of Phone Billing Address Personal/Family [address] [place] [phone] [employer] [place] [place] SELF PAY NO INSURANCE Member Subscriber Plan / Payer (Ef fective for All Dates) Name:Ravinder Pham Member ID:Not on file Relation to Subscriber:Not on file Name:RAVINDER PHAM Subscriber ID:Not on file Address: [address] [place] [phone] Payer ID:Not on file Group ID:Not on file Type:Self Pay Address: [place], [place] * Guarantor: RAVINDER PHAM Account Type Relation to Patient Date of Phone Billing Address Personal/Family [address] [place] [address] Care Teams Radiocommunications Technician Relationship Specialty Start Date End Date Ciera Galvez MD PCP - General Pediatrics 08/07/16
--- OUTSIDE RECORDS SUMMARY | 2025-02-18 05:15 | XMS_ITS | Clinical Summary ---
Author Organization [facility] Address [address] [place] [address] Care Team Providers Care Creative Lead Name Role Phone Nir Schmid MD Primary Care Provider [phone] Allergies No known active allergies Medications fluticasone propionate 93 mcg/actuation aerosol breath activated Administer 1 spray into affected nostril(s) 2 (two) times a day 16 mL 6 1 Active Additional Information Patient taking differently:1 spray nasal 2 times daily,Indications: Nasal Polyp, Informant: Self, Reported on 05/15/2022 loratadine (CLARITIN) 10 mg tabletIndicatio ns:Allergic Rhinitis Take 1 tablet (10 mg total) 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 before breakfast Active HYDROcodone-tammy taminophen (NORCO) 5-325 mg per tabletIndicatio ns:Pain TAKE 1 TABLET EVERY 4-6 HOURS NEEDED FOR PAIN 20 tablet 2 Active montelukast (SINGULAIR) 10 mg tablet 2 Active Active Problems Problem Noted Date Diagnosed Date Loose body in knee, left knee 05/14/2022 Overview (05/14/2022): Added automatically from request for surgery [id number] Left knee pain 05/14/2022 Overview (05/14/2022): Added automatically from request for surgery [id number] Hypertrophy, nasal, turbinate 02/16/2020 Overview (02/16/2020): Added automatically from request for surgery [id number] Chronic pansinusitis 02/16/2020 Overview (02/16/2020): Added automatically from request for surgery [id number] Nose polyp 02/16/2020 Overview (02/16/2020): Added automatically from request for surgery [id number] Hypertrophy of nasal turbinates 08/18/2019 Deviated nasal septum 08/18/2019 Chronic sinusitis 08/18/2019 Left anterior cruciate ligament tear 08/13/2019 Overview (08/13/2019): Added automatically from request for surgery [id number] Complex tear of medial menis cus of left knee as current injury 08/13/2019 Overview (08/13/2019): Added automatically from request for surgery [id number] Pain in joint of right shoulder 09/15/2015 Petra-Schlatter's disease 07/16/2013 [...] on file 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 Gender Identity Not on file Sexual Orientation Not on file Obstetrics History Last Filed Vital Signs Vital Sign Reading Time Taken Comments Blood Pressure 146/83 05/30/2022 1:45 PM ELECTRICAL LINESWORKER Pulse 86 05/30/2022 1:45 PM ELECTRICAL LINESWORKER Temperature 36 C (96.8 F) 05/30/2022 12:34 PM ELECTRICAL LINESWORKER Respiratory Rate 17 05/30/2022 1:45 PM ELECTRICAL LINESWORKER Oxygen Saturation 97% 05/30/2022 1:45 PM ELECTRICAL LINESWORKER Inhaled Oxygen Concentration - - Weight 97.5 kg (215 lb) 07/16/2023 7:36 AM ELECTRICAL LINESWORKER Height 180.3 cm (5' 11) 07/16/2023 7:36 AM ELECTRICAL LINESWORKER Body Mass Index 29.99 07/16/2023 7:36 AM ELECTRICAL LINESWORKER Plan of Treatment Health Maintenance Due Date Last Done Comments Hepatitis C Screening 2000 HPV Vaccines (1 - Male 3-dos e series) 11/15/2014 Regular Well Visit/Exam 18-64 11/15/2017 Pneumococcal vaccine <65 (1 of 2 - PCV) 11/15/2018 Depression Screening 04/20/2020 04/20/2019 DTaP/Tdap/Td Vaccine (7 - Td or Tdap) 08/31/2020 08/31/2010, 01/21/2005, 09/12/2001, Additional history exists Influenza Vaccine (#1) 2025 03/16/2019 Hepatitis B Screening Completed 09/12/2001 , 12/20/2000, 06/30/2000 Varicella Vaccines Completed 01/25/2008, 09/12/2001 Medical Devices Implanted Type Area Manager Plan Device Identifier Shelf Expiration Date Model / Serial / Lot [employer] [id number] Fast-Fix 2 Marks Pretie Suture 360d Curve Device Fixation - S00 - [id number] Implanted:Qty: 1 on 10/19/2019 by Adal Browning MD at [facility] Left: Knee [employer] 05/20/2022 [id number] / [id number] [employer] [id number] Fast-Fix 2 Marks Pretie Suture 360d Curve Device Fixation - S00 - [id number] Implanted:Qty: 1 on 10/19/2019 by Adal Browning MD at [facility] Left: Knee [employer] 06/09/2022 [id number] / [id number] [employer] [id number] Fast-Fix 2 Marks Pretie Suture 360d Curve Device Fixation - S00 - [id number] Implanted:Qty: 1 on 10/19/2019 by Adal Browning MD at [facility] Left: Knee [employer] 06/09/2022 [id number] / [id number] [employer] Ar-1380e 8mm 20mm Cannulated Sheath Acl Pcl Screw Interference Titanium - [id number] Implanted:Qty: 1 on 10/19/2019 by Adal Browning MD at [facility] Left: Knee [employer] 07/02/2024 AR-1380E / / [id number] [employer] Ar-1390e 9mm 20mm Cannulated Sheath Acl Pcl Screw Interference Titanium - [id number] Implanted:Qty: 1 on 10/19/2019 by Adal Browning MD at [facility] Left: Knee [employer] 05/01/2024 AR-1390E / / [id number] Insurance [employer] OOS Urban Mass[employer] OOS [employer] ACCESS OOS Care Teams Creative Lead Relationship Specialty Start Date End Date Nir Schmid MD [address] [place] [address] [place] [address] PCP - General Family Medicine 04/15/22
[2025-02-18 09:49] VITALS: BP 127/71; PULSE 76; RESP 18; TEMP 36.5; O2SAT 100
--- NOTE | 2025-02-18 10:00 | WPDANESEPPF ---
Anes - Initial Pre Proc Eval Procedure: Operation Date: 02/18/25 10:30 Proposed Procedures p Diagnostic Colonoscopy - Mehdi Wellington MD Date/Time: 02/18/25 10:00 Surgeon: Mehdi Wellington MD Pre Op Diagnosis: Noninfective gastroenteritis and colitis, unspecif Patient Data Age: 24 Gender: M Height: 1.8 m Weight: 87.6 kg Last Vital Signs Temp 36.5 C 02/18/25 09:49 Pulse 76 02/18/25 09:49 Resp 18 02/18/25 09:49 BP 127/71 02/18/25 09:49 Pulse Ox 100 02/18/25 09:49 O2 Del Method Room Air 02/18/25 09:49 Allergies Allergy/AdvReac Type Severity Reaction Status Date / Time No Known Allergies Allergy Verified 02/18/25 09:48 Home Medications ?Medication ?Instructions ?Recorded ?Confirmed ?Type ustekinumab 90 mg/mL subcutaneous 90 mg subcut .every 8 weeks #1 mL 12/28/24 02/16/25 Rx syringe (Stelara) Patient hx anesthesia problems: none Family hx anesthesia problems: none Results Review: All pre-operative results and documents have been reviewed as part of the pre-operative evaluation. [facility] Past Medical History Medical History Anemia Abdominal pain Elevated fecal calprotectin Blood in stool Ulcerative colitis Acute bilateral otitis media Surgical History Surgical History (Updated 02/18/25 @ 10:00 by Mauricio Willson MD) H/O sinus surgery S/P ACL repair Family History Family History Father No problems noted. Mother No problems noted. Social History Social History Smoking status: Light tobacco smoker Tobacco type: cigars Additional smoking assessment comments: ONCE A MONTH Alcohol intake: current Drinks per week: 2 Alcohol use details: DRINKS Substance use: never Substance use type: does not use Lack of Transportation: No Lack of Food: Never True Current Housing: I Have Housing Concerned About Future Housing: No Difficulty Paying Gas/Electric Bills: No Difficulty Paying for Meds: No Currently Unemployed: No Education: High School Diploma/GED Difficulty w/ Childcare or Family Care: No Living arrangements: with family Occupation/Education: occupation Gender identity (if verbalized by the patient): Male Sexual Orientation (if Verbalized by the Patient): Straight or Heterosexual Spiritual care concerns: No Anes - Eval Final PreProcedure Day of Procedure 02/18/25 10:00 Patient weight: overweight Heart: regular rate and rhythm Lungs: clear to auscultation Airway: Mallampati scale class II Neurological: alert and oriented Last oral intake: >/= 8 hours ASA classification: II Emergent: no Anesthetic plan: proceed Anesthesia type and monitoring: general GIVS and standard monitoring Results Review: All pre-operative results and documents have been reviewed as part of the pre-operative evaluation. Informed Consent: The patient's anesthetic plan and its attendant risks and benefits were discussed with the patient/family/POA. Questions were solicited and answers provided to the satisfaction of the patient/family/POA.
[2025-02-18] MEDS: LACTATED RINGERS 1,000 ML 150 ML IV CONT (10:05)
--- NOTE | 2025-02-18 10:56 | WPDHPUPDATE1 ---
History and Physical Update Update Date/Time: 02/18/25 10:56 History and Physical has been reviewed, including an updated exam of the patient. There are NO changes in the patient's condition. Risks, benefits, and alternatives have been discussed and questions answered. Patient agrees to proceed with procedure.
--- NOTE | 2025-02-18 11:03 | S_PTH ---
PATIENT: Ravinder Pham LOC: [facility]#:[id number] AGE/SX: 24/M ROOM: RE02/18/[address]: Mehdi Wellington MD : 2000 BED: DIS: 02/18/2025 SPEC #: [id number] RECD: 02/18/25 11:27 STATUS: OLIVIER RUELAS #: [id number] DOMINIQUE: 02/18/25 11:[address]: Mehdi Wellington DEPT: [facility] Surgical RECD BY: Kary Singh ENTERED: 02/18/25 11:28 SP TYPE: Surgical OTHR DR: Nir Schmid MD Tissues: A - Colon Biopsy B - Colon Biopsy Procedures: Hematoxylin and Eosin Stain Gross and Microscopic Level 4
[2025-02-18 11:07] VITALS: BP 102/59; PULSE 76; RESP 18; O2SAT 96
[2025-02-18 11:17] VITALS: BP 107/58; PULSE 60; RESP 20; O2SAT 99
[2025-02-18 11:27] VITALS: BP 115/65; PULSE 63; RESP 20; O2SAT 99
== END 2025-02-18 11:39 | disposition home or self-care (01) ==
PROVIDERS: PCP Family Medicine; Referring Provider Internal Medicine Gastroenterology; Visit Provider Internal Medicine Gastroenterology
PROC: 0DJD8ZZ Inspection of Lower Intestinal Tract, Via Natural or Artificial Opening Endoscopic (ICD-10-PCS; CPT 45378; principal; 2025-02-18 10:30)
DX: K64.8 Other hemorrhoids (principal); K63.89 Other specified diseases of intestine; D64.9 Anemia, unspecified; F17.290 Nicotine dependence, other tobacco product, uncomplicated; Z98.890 Other specified postprocedural states; Z87.19 Personal history of other diseases of the digestive system
CPT/HCPCS: 45380; 88305; J2704; J7120

== ENCOUNTER 2025-03-16 11:32 | Outpatient (CLI) | payer OTHER, SELFPAY ==
[2025-03-16 12:29] LABS: Hematocrit 47.2 % (42.0-52.0); Hemoglobin 15.8 g/dL (14.0-18.0); Mean Corpuscular HGB Conc 33.5 g/dl (32-36); Mean Corpuscular Hemoglobin 28.7 pg (26-34); Mean Corpuscular Volume 85.8 fl (80-100); Platelet Count Result 356 k/mm3 (150-375); Red Blood Count 5.50 M/mm3 (4.6-6.20); White Blood Count 5.6 K/mm3 (4.5-10.0)
[2025-03-16 12:54] LABS: Iron 143 ug/dL (49-181)
[2025-03-16 12:55] LABS: Alanine Aminotransferase 25 U/L (6-50); Albumin Level 4.7 g/dL (3.5-5.1); Alkaline Phosphatase 84 U/L (38-126); Anion Gap 10 mmol/L (4-12); Aspartate Amino Transferase 29 U/L (17-59); Bilirubin,Total 0.7 mg/dL (0.2-1.3); Blood Urea Nitrogen 22 mg/dL (9-20); CRP < 0.5 mg/dL (<1.0); Calcium 9.5 mg/dL (8.4-10.2); Carbon Dioxide 28 mmol/L (22-30); Chloride 102 mmol/L (98-107); Estimated Glomerular Filt Rate > 60; Glucose 89 mg/dL (65-110); Potassium 3.9 mmol/L (3.4-5.0); Sodium 140 mmol/L (137-145); Total Protein 8.0 g/dL (6.3-8.2)
[2025-03-16 13:07] LABS: Percent Iron Saturation 40 % (20-50)
[2025-03-16 14:04] LABS: Vitamin B12 628.0 pg/mL (239-931)
[2025-03-18 15:09] LABS: Calprotectin, Fecal 122 ug/g (0-120)
== END 2025-03-16 11:33 | disposition home or self-care (01) ==
PROVIDERS: PCP Family Medicine; Visit Provider Nurse Practitioner Family
DX: R19.5 Other fecal abnormalities (principal); K51.80 Other ulcerative colitis without complications; D64.9 Anemia, unspecified
CPT/HCPCS: 36415; 80053; 82607; 82746; 83540; 83550; 83993; 85027; 85652; 86140